=== PATIENT | female | born 1940 | race Caucasian/White ===

== ENCOUNTER → 2017-03-16 | Day surgery (SDC) | payer MEDICARE, OTHER ==
[~2017-03-16] MED LIST: ALPRAZOLAM PO; ASPIRIN PO; ASPIRIN81 M2 PO; BAYER CHEWABLE81 MG PO; CALCIUM 500 +1 EAC2 PO; DUREZOL5 ML OS; ETODOLAC PO; EVISTA60 M1 PO; EVISTA60 MG PO; FLEXERIL PO; GLUCOSAMIN/CHONDROIT PO; HCTZ PO; HYDROCHLOROTH12.5 M1 PO; HYDROCODON-ACE1 EAC7 PO; HYDROXYZINE HCL10 MG PO; IRON SUPPLEMENT1 TAB PO; K-DUR10 MEQ PO; LIPITOR PO; LIPITOR40 MG PO; LISINOPRIL PO; LODINE500 M1 PO; MULTI-VITAMIN1 TAB PO; NORVASC PO; OMEPRAZOLE20 M1 PO; PRED MILD5 ML OU; PRILOSEC20 MG PO; PRINIVIL40 MG PO; TEMOVATE 0.05%15 GM; TYLENOL325 M1 PO; VIT B-12 PO; VITAMIN B122500 MCG PO; VITAMIN C500 MG PO; ZESTRIL40 MG PO; [UNRECOGNIZED DRUG - OTHER] TOP
== END | disposition home or self-care (01) ==
LOC: CCSC 10:17
DX: G89.29 Other chronic pain (principal); M51.17 Intervertebral disc disorders with radiculopathy, lumbosacral region; M48.07 Spinal stenosis, lumbosacral region; M47.27 Other spondylosis with radiculopathy, lumbosacral region; M19.90 Unspecified osteoarthritis, unspecified site; Z91.048 Other nonmedicinal substance allergy status; Z79.891 Long term (current) use of opiate analgesic; Z79.899 Other long term (current) drug therapy; Z79.82 Long term (current) use of aspirin; Z79.52 Long term (current) use of systemic steroids; Z90.710 Acquired absence of both cervix and uterus; Z96.653 Presence of artificial knee joint, bilateral; Z90.10 Acquired absence of unspecified breast and nipple; Z96.1 Presence of intraocular lens; Z98.890 Other specified postprocedural states
CPT/HCPCS: J1040; J2250

== ENCOUNTER → 2017-03-17 | Outpatient (CLI) | payer MEDICARE, OTHER ==
--- NOTE | ~2017-03-17 | CT98 ---
[facility] A Service of [facility] & [facility] RADIOLOGY TEXT RESULTS PATIENT: JOHANA STACK LOCATION: [facility] : 44 UNIT #: [id number] AGE: [address]: Giovanni Simms MD SEX: F ORDER DR: [id number] [facility] [address] [place], [place] [address] [id number] O MR#: [id number] [facility] #: [id number] NAME: JOHANA STACK. : 1940 SEX: F STUDY DATE/TIME: 03/17/2017 16:25 UNIT: [facility] ROOM: STUDY DESCRIPTION: CT Lumbar Spine Wo Cont Attending Physician: Giovanni Simms Referring Physician: Giovanni Simms Ordering Physician: Corky Simms M.D. Primary Care Physician: Jr Escobedo M.D. MEDICAL IMAGING REPORT This report is preliminary unless electronic signature is present EXAM Lumbar spine CT 03/17 INDICATIONS Lumbar radiculitis unresponsive to conservative treatment. Low back pain and left hip pain since November 2016. No trauma. History of breast cancer. TECHNIQUE Axial noncontrast images were obtained through the lumbar spine. Multiplanar reformats were obtained. No comparison CT. The CT exam was performed with one or more of the following radiation dose reduction techniques: automatic exposure control, adjustment of mA and/or kV according to patient size, and iterative reconstruction. FINDINGS There is subtle grade 1 anterolisthesis of L4 on L5. There is mild grade 1 retrolisthesis of L2 on L3 and L1 on L2. There is mild left lateral tilt of L3. There are no fractures. There is a mild degree of mid lumbar dextroscoliosis. At L5-S1, there is bilateral facet arthropathy. No significant disc bulging is seen. No central canal or foraminal stenosis is identified. At L4-5, there is hypertrophic facet arthropathy, left greater than right. There is ligamentum flavum hypertrophy. There is a minimal disc bulge with some uncovering of the disc. This results in severe narrowing of the central canal with at least moderately severe narrowing of both foramina. At L3-4, there is facet arthropathy with some ligamentum flavum STS. [facility] A Service of [facility] RADIOLOGY TEXT RESULTS PATIENT: JOHANA STACK LOCATION: [facility] : 44 UNIT #: [id number] AGE: [address]: Giovanni Simms MD SEX: F ORDER DR: igor. There is a broad-based posterior disc osteophyte complex. There is moderate left and moderate to severe right neural foraminal narrowing. There is borderline central stenosis. At L2-3, there is broad-based posterior disc osteophyte complex accentuated by spondylolisthesis. There is bilateral facet arthropathy with ligamentum flavum hypertrophy. There is mild to moderate bilateral foraminal stenosis without significant central stenosis. At L1-2, there is a broad-based disc bulge accentuated by spondylolisthesis. There is facet arthropathy and ligamentum flavum hypertrophy. There is severe bilateral foraminal stenosis, but no significant central stenosis identified. At T12-L1, there is loss of disc height with a broad-based posterior disc osteophyte complex. There is some mild facet arthropathy. There is very mild narrowing of the foramina. IMPRESSION Multilevel facet arthropathy and degenerative disc disease as detailed above level by level. There is also multilevel grade 1 spondylolisthesis. No compression fractures are identified. Dictated by... Ti England Jr., M.D. THIS IS AN ELECTRONICALLY VERIFIED REPORT Ti England Jr., M.D. at 03/21/2017 12:40 PM DENA/david TD: 03/21/2017 10:45 JOB #: [id number] MEDICAL IMAGING REPORT Page 1 of 1 COPY
--- NOTE | ~2017-03-17 | OR ---
Unit #: [id number] #: [id number] Patient: JOHANA STACK [id number] [address] [address] [id number] O MR#: [id number] NAME: JOHANA STACK. ROOM: Date of Procedure: 03/16/2017 Admission Date: 03/17/2017 Surgeon: Corky Simms M.D. : 1940 Attending Physician: Corky Simms M.D. Referring Physician: Corky Simms M.D. Primary Care Physician: Jr Escobedo M.D. SURGERY CENTER OPERATIVE NOTE PROCEDURE PERFORMED Caudal epidural steroid injection under x-ray guided needle placement with provider administered conscious sedation. PREOPERATIVE DIAGNOSES 1. Acute lumbar radiculitis. 2. Spinal stenosis, lumbosacral spine. 3. Degenerative joint disease, lumbosacral spine. 4. Degenerative disk disease, lumbosacral spine. INDICATIONS FOR PROCEDURE The patient presents today with longstanding history of chronic lumbar radicular pain secondary to her underlying degenerative processes. She has been treated fairly successfully over the years with conservative management; however, over the course of the past few months, she has begun to develop refractory periods where her pain advances in a crescendo pattern and does not seem to be amenable to conservative treatment. She is currently experiencing just such an exacerbation with pain primarily in her left hip, which has failed to respond to her usual and ongoing conservative measures. After discussing risks and benefits of proceeding today with an empiric L4-L5 epidural steroid injection, the patient agreed this would be the appropriate course of action and tend to obtain a CT scan prior to her next visit on 04/04/2017 at which point, we may give a more directed injection and/or referral to P for potential radiofrequency ablation if facet arthrosis is demonstrated. DESCRIPTION OF PROCEDURE Following this discussion, the patient was taken to the operating room, where she was prepped and draped in a sterile manner. Standard monitors were applied. She was sedated with 2 mg of IV Versed and lumbar epidural space was attempted to be accessed at the L4-L5 level unsuccessfully. As we viewed on plain film during the needle placement, there was marked disk collapse at the L5-S1 and the L4-L5 levels, therefore in order to ensure good coverage, we opted to access the epidural space via the caudal route. The patient was re-prepped and draped sterilely and an epidural needle was introduced into the caudal epidural space under x-ray guided needle placement. Needle placement was confirmed with injection of 3 mL of Omnipaque and there was good superior flow in this caudal placed needle. Following successful needle placement confirmation, the patient received an injectate containing 6 mL normal saline, and 80 mg of methylprednisolone. She tolerated this procedure well. She was discharged home with followup instructions, which include return to this clinic on 04/04/2017. Unit #: [id number] #: [id number] Patient: JOHANA STACK Chary Dictated by... Seymour Perera/arnold TD: 03/16/2017 13:08 JOB #: [id number] CC: Jr Escobedo M.D. SURGERY CENTER OPERATIVE NOTE Page 1 of 1 X Giovanni Simms MD X PROCEDURE OPERATIVE NOTE
== END | disposition home or self-care (01) ==
LOC: CCAT 15:31
DX: M54.16 Radiculopathy, lumbar region (principal); M51.16 Intervertebral disc disorders with radiculopathy, lumbar region; M46.96 Unspecified inflammatory spondylopathy, lumbar region; M43.16 Spondylolisthesis, lumbar region; M25.78 Osteophyte, vertebrae
CPT/HCPCS: 72131

== ENCOUNTER → 2017-04-04 | Day surgery (SDC) | payer MEDICARE, OTHER ==
--- NOTE | ~2017-04-04 | OR ---
Unit #: [id number] #: [id number] Patient: JOHANA STACK [id number] [address] [address] [id number] O MR#: [id number] NAME: JOHANA STACK. ROOM: Date of Procedure: 04/04/2017 Admission Date: 04/04/2017 Surgeon: Corky Simms M.D. : 1940 Attending Physician: Giovanni Simms Primary Care Physician: Jr Escobedo M.D. SURGERY CENTER OPERATIVE NOTE PROCEDURE PERFORMED Lumbar epidural steroid injection under x-ray guided needle placement with provider administered conscious sedation. PREOPERATIVE DIAGNOSES 1. Acute lumbar radiculitis. 2. Spinal stenosis, lumbosacral spine. 3. Multiple level degenerative joint disease. 4. Multiple level degenerative disk disease. INDICATIONS FOR PROCEDURE The patient presents today status post one previous lumbar approach epidural steroid injection for an acute radiculitis, which had failed to respond to conservative therapy. The patient states she got good results; however, results are not complete nor the completely long lasting. She did have some return of symptomatology prior to her visit today. After discussing risks and benefits of proceeding today with a lumbar approach epidural steroid injection as well as a caudal approach to get the lower levels L4-L5 and L5-S1, the patient agreed this would be the appropriate course of action. DESCRIPTION OF PROCEDURE She was then taken to the operating room, where she was prepped and draped in a sterile manner. Standard monitors were applied. She was sedated initially with 0.5 mg of IV Versed and required an additional 1 mg of IV Versed throughout the duration of procedure. Lumbar epidural space accessed via the caudal root using loss of resistance technique and x-ray guidance as well as at L1-L2. Both needle placement was confirmed with injection of 2 mL of Omnipaque. There was good superior flow at the caudal placed needle as well as good inferior and superior flow at the L1-L2 level needle. Following successful needle placement which required total x-ray time of 10 seconds, the patient received an injectate containing 4 mL normal saline and 40 mg of methylprednisolone at each needle location for total injectate volume today of 8 mL normal saline and 80 mg of methylprednisolone. She tolerated this procedure well. She was discharged home with followup instructions, which include an offer to return to this clinic as early as 07/06/2017 if we could be of further service to her. Dictated by... Corky Simms M.D. Unit #: [id number] #: [id number] Patient: JOHANA STACK G/modl TD: 04/04/2017 22:36 JOB #: [id number] SURGERY CENTER OPERATIVE NOTE Page 1 of 1 X Giovanni Simms MD X PROCEDURE OPERATIVE NOTE
== END | disposition home or self-care (01) ==
LOC: CCSC 13:10
DX: M51.16 Intervertebral disc disorders with radiculopathy, lumbar region (principal); M48.07 Spinal stenosis, lumbosacral region; M47.26 Other spondylosis with radiculopathy, lumbar region; M19.90 Unspecified osteoarthritis, unspecified site; Z91.013 Allergy to seafood; Z79.82 Long term (current) use of aspirin; Z79.899 Other long term (current) drug therapy; Z90.710 Acquired absence of both cervix and uterus; Z96.653 Presence of artificial knee joint, bilateral; Z90.10 Acquired absence of unspecified breast and nipple; Z98.42 Cataract extraction status, left eye; Z98.41 Cataract extraction status, right eye; Z96.1 Presence of intraocular lens; Z98.818 Other dental procedure status; Z98.890 Other specified postprocedural states
CPT/HCPCS: J1040; J2250

== ENCOUNTER → 2017-07-06 | Day surgery (SDC) | payer MEDICARE, OTHER ==
--- NOTE | ~2017-07-06 | OR ---
Unit #: [id number] #: [id number] Patient: JOHANA STACK [id number] [address] [place], [place] [address] [id number] O MR#: [id number] NAME: JOHANA STACK ROOM: Date of Procedure: 07/06/2017 Admission Date: 07/06/2017 Surgeon: Corky Simms M.D. : 1940 Attending Physician: Corky Simms M.D. Primary Care Physician: Jr Escobedo M.D. SURGERY CENTER OPERATIVE NOTE PROCEDURE PERFORMED Lumbar epidural steroid injection under x-ray guided needle placement with provider administered conscious sedation. PREOPERATIVE DIAGNOSES 1. Acute lumbar radiculitis. 2. Spinal stenosis, lumbosacral spine. 3. Listhesis, L2-L3. 4. Listhesis, L4-L5. 5. Degenerative joint disease, lumbosacral spine. 6. Degenerative disk disease, lumbosacral spine. INDICATIONS FOR PROCEDURE The patient presents today with longstanding history of chronic lumbar radicular pain secondary to her underlying degenerative processes. She is generally fairly well managed medically with ongoing medical management and self-directed physical activity. She does however occasionally experience exacerbations, which to date have only responded to epidural steroid injections. Her usual amount of relief is 60% to 80% for 6 to 8 weeks. She presents today having just such an exacerbation, which has broken through her usual and ongoing conservative management. It is advanced to the point that she is now experiencing difficulties in her activities of daily living. Her current symptomatology is consistent with past symptomatology as well as her x-ray studies. After discussing risks and benefits of proceeding today with a lumbar approach epidural steroid injection utilizing a dual needle technique, the patient agreed this would be the appropriate course of action. DESCRIPTION OF PROCEDURE She was then taken to the operating room, where she was prepped and draped in a sterile manner. Standard monitors were applied. She was sedated with 0.5 mg of IV Versed initially and required an additional 0.5 mg throughout the duration of procedure. Attempts at the L2-L3 and the L4-L5 levels were unsuccessful; however, we were successful at getting to the L5-S1 and the L1-L2 level epidural spaces using loss of resistance technique and x-ray guidance. Needle placement was confirmed at each level with the injection of 2 mL of Omnipaque. There was good superior and inferior flow at the L5-S1 level; however at the L1-L2 level, most of the flow was in the superior direction. At next visit, we will likely attempt initial L2-L3 access and guided her second needle placement based on that. Total x-ray time for a dual needle placement today was 21 seconds. Following successful needle placement confirmation at the L1-L2 and the L5-S1 levels, the patient received an injectate containing 4 mL Unit #: [id number] #: [id number] Patient: JOHANA STACK normal saline and 40 mg of methylprednisolone at each level for a total injectate volume today of 8 mL normal saline and 80 mg of methylprednisolone. She tolerated this procedure well. She was discharged home with followup instructions, which include an offer to return to this clinic as early as 10/05/2017 if we could be of further service to her. Dictated by... Seymour Perera/arnold TD: 07/06/2017 12:06 JOB #: [id number] CC: Ildefonso Escobedo M.D. SURGERY CENTER OPERATIVE NOTE Page 1 of 1 X Giovanni Simms MD X PROCEDURE OPERATIVE NOTE
== END | disposition home or self-care (01) ==
LOC: CCSC 08:21
DX: G89.29 Other chronic pain (principal); M51.17 Intervertebral disc disorders with radiculopathy, lumbosacral region; M47.27 Other spondylosis with radiculopathy, lumbosacral region; M43.16 Spondylolisthesis, lumbar region; M48.07 Spinal stenosis, lumbosacral region; M19.90 Unspecified osteoarthritis, unspecified site; Z79.82 Long term (current) use of aspirin; Z79.899 Other long term (current) drug therapy; Z90.710 Acquired absence of both cervix and uterus; Z98.41 Cataract extraction status, right eye; Z98.42 Cataract extraction status, left eye; Z96.1 Presence of intraocular lens; Z96.653 Presence of artificial knee joint, bilateral; Z90.10 Acquired absence of unspecified breast and nipple; Z98.890 Other specified postprocedural states
CPT/HCPCS: J1040; J2250